=== PATIENT | male | born 1945 | race Caucasian/White ===

== ENCOUNTER 2020-01-27 21:59 | Inpatient (IN) | payer MEDICAID, SELFPAY ==
[2020-01-27 22:01] VITALS: BP 169/91; PULSE 96; RESP 16; TEMP 36.5; O2SAT 98; BMI 20.7
--- NOTE | 2020-01-27 22:01 | ECG_ITS ---
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 Measurements Intervals [place] Rate: 100 P: 53 UT: 181 QRS: 4 QRSD: 83 T: 30 QT: 350 QTc: 453 Interpretive Statements SINUS TACHYCARDIA ABNORMAL RHYTHM ECG No previous ECG available for comparison Electronically Signed On 01-28-2020 16:20:23 CDT by Gurdeep Flores M.D. [id number]
--- NOTE | 2020-01-27 22:01 | XR_ITS ---
WS: [id number] Portable AP upright chest, 01/27/2020 Clinical Data: weakness Comparison: None. Findings: No masses or effusions are seen. There is a 1 cm nodule in the midportion of the right lyndsay g overlying the posterior aspect of the right sixth rib. The heart is normal. The pulmonary vasculari ty is not increased. No pneumonia or pneumothorax is seen. The aortic arch and descending aorta are t ortuous. There is a hiatal hernia behind the heart. XR/XR chest 1V portable [id number] Impression: 1. 1 cm nodule in right upper lobe, recommend PA and lateral chest and possible CT scan of the chest. 2. Atherosclerosis.
--- NOTE | 2020-01-27 22:04 | ED_ITS ---
HPI - Weakness General: Chief complaint: General Medical Stated complaint: WELL BEING CHECK Time Seen by Provider: 01/27/20 21:59 Source: patient and EMS Mode of arrival: EMS Limitations: no limitations History of Present Illness: HPI Narrative: 74-year-old male who is here with EMS after having a well check call him by police. Patient was found in a house that was falling down and had no running water and police states they are going to condemned and likely tear the house down tomorrow. Patient has a history of cerebral palsy and history is limited from him due to his CP. He has been living by himself he states he is not able to ambulate very well. Patient appears very disheveled. He denies any pain anywhere or fever. Associated symptoms: Denies chest pain, chills, dysuria, easy bruising, fever(s), nausea or vomiting Review of Systems Const: Denies: fever(s), chills, body aches or change in appetite Eyes: Denies: blurry vision or eye discomfort ENMT: Denies: throat pain or dental pain Card: Denies: chest pain Resp: Denies: dyspnea GI: Denies: abdominal pain, nausea, vomiting or diarrhea : Denies: dysuria Musc: Denies: neck pain or back pain Skin/Breast: Denies: rash Neuro: Reports: weakness in extremities Psych: Denies: depression Clovis/Lymph: Denies: easy bruising All/Imm: Denies: urticaria Physical Exam Const: COMMON NORMALS: patient oriented x3 EXAM LIMITATIONS: physical limitations GENERAL APPEARANCE: disheveled and frail appearing HENMT: COMMON NORMALS: normocephalic and atraumatic HEAD & SCALP: normocephalic and atraumatic Eye: COMMON NORMALS: Equal, round and reactive pupils present and EOMs intact bilaterally PUPIL: Yes Equal, round and reactive pupils present Neck/C-Spine: COMMON NORMALS: full ROM and supple Chest: COMMONS NORMALS: normal inspection of the chest and normal palpation of entire chest wall Resp: COMMON NORMALS: normal respiratory effort, No retractions, No use of accessory muscles and clear to auscultation bilaterally AUSCULTATION: clear to auscultation bilaterally Cardio: COMMON NORMALS: regular rate, regular rhythm and No murmurs present (Cardio) RATE: regular rate RHYTHM: regular rhythm GI: COMMON NORMALS: Normal to inspection, nondistended, normoactive bowel sounds present, Soft to palpation, non-tender and no masses PALPATION: Yes Soft to palpation Extremity: COMMON NORMALS: normal to inspection and full ROM Neuro: COMMON NORMALS: patient oriented x3, moves all extremities and no focal motor deficits Psych: COMMON NORMALS: mental status grossly normal, Normal thought process present and cooperative THOUGHT PROCESS: Normal thought process present Skin: COMMON NORMALS: no rashes or lesions noted and no wounds GENERAL SKIN EXAM: no rashes or lesions noted Course Vital Signs: Vital signs: Vital Signs Temperature 97.7 F 01/27/20 22:01 Pulse Rate 121 H 01/28/20 00:10 Respiratory Rate 17 01/28/20 00:10 Blood Pressure 159/80 01/28/20 00:10 Pulse Oximetry 98 01/28/20 00:10 MDM - Weakness MDM Narrative: Medical decision making narrative: Piotr presents here with generalized weakness. Patient was found in the home that was not livable he has CP and is unable to care for himself. I have had Dr. Miller's come to see the patient and will admit for generalized weakness and his anemia. Lab Data: Labs: Lab Results 01/27/20 01/27/20 Range/Units 23:10 23:10 WBC 8.1 (4.0-10.0) 10^3/ uL RBC 4.05 L (4.1-5.3) 10^6/u L Hgb 8.5 L (11.7-16.6) g/dL Hct 30.6 L (42.0-52.0) % MCV 75.6 L (80-94) fL MCH 21.0 L (28.0-34.0) pg MCHC 27.8 L (30.0-36.0) g/dL RDW 19.6 H (12.1-15.1) % Plt Count 308 (130-400) 10^3/c mm MPV 9.4 (7.4-10.4) fL Neut % (Auto) 80.7 % Lymph % (Auto) 10.5 % Dixon % (Auto) 5.8 % Eos % (Auto) 2.0 % Baso % (Auto) 0.6 % Neut # (Auto) 6.53 (1.8-7.7) 10^3/u L Lymph # (Auto) 0.9 (0.8-4.8) 10^3/u L Dixon # (Auto) 0.5 (0.2-0.9) 10^3/u L Eos # (Auto) 0.2 (0.0-0.8) 10^3/u L Baso # (Auto) 0.1 (0.0-0.1) 10^3/u L Nucleated RBC % (a uto) 0 % Nucleated RBCs # 0.0 /100WBC Sodium 139 (136-145) mmol/L Potassium 4.0 (3.5-5.1) mmol/L Chloride 106 (98-107) mmol/L Carbon Dioxide 23 (22-29) mmol/L Anion Gap 14.0 (5-19) BUN 14 (8-23) mg/dL Creatinine 0.8 (0.7-1.2) mg/dL GFR Calculation Not Reportable Glucose 100 (65-115) mg/dL Calculated Osmolal ity 284 L (285-295) mOsm/k g Calcium 9.0 (8.5-10.5) mg/dL Magnesium 1.8 (1.7-2.3) mg/dL Total Bilirubin 0.5 (0.15-1.2) mg/dL AST 18 (0-40) U/L ALT 9 (0-41) U/L Alkaline Phosphata se 87 (40-130) IU/L Total Protein 7.6 (6.6-8.7) g/dL Albumin 3.7 (3.5-5.2) g/dL Globulin 3.9 (1.3-4.6) g/dL Imaging Data^: CXR: Attestation: I personally reviewed and interpreted this imaging study as follows: My impression: no acute abnormality EKG Data^: EKG 1: Attestation: I personally reviewed and interpreted this EKG as follows: EKG interpretation date: 01/27/20 EKG interpretation time: 23:01 Interpretation: nsr hr [address] or t wave abnormalities qrs 82 qtc 396 Discharge Plan Discharge Patient Disposition: Admitted As Inpatient Clinical Impression: Generalized weakness, Anemia Condition: Stable Coding Level of Care Code ED Ship Rigger Apprentice for Chg Fwd Exam Comprehensive
--- NOTE | 2020-01-27 23:16 | PC.NURSE ---
REPORT GIVEN TO MIKAYLA POTTER ASSUMED CARE.
[2020-01-27 23:28] LABS: Basophils # 0.1 10^3/uL (0.0-0.1); Basophils % 0.6 %; Eosinophils # 0.2 10^3/uL (0.0-0.8); Hematocrit 30.6 % (42.0-52.0); Hemoglobin 8.5 g/dL (11.7-16.6); Lymphocytes # 0.9 10^3/uL (0.8-4.8); Lymphocytes % 10.5 %; Mean Corpuscular HGB Conc 27.8 g/dL (30.0-36.0); Mean Corpuscular Volume 75.6 fL (80-94); Mean Platelet Volume 9.4 fL (7.4-10.4); Monocytes # 0.5 10^3/uL (0.2-0.9); Monocytes % 5.8 %; Neutrophils # 6.53 10^3/uL (1.8-7.7); Neutrophils % 80.7 %; Nucleated Red Blood Cells % 0 %; Platelet Count 308 10^3/cmm (130-400); Red Blood Count 4.05 10^6/uL (4.1-5.3); Red Cell Distribution Width 19.6 % (12.1-15.1); White Blood Count 8.1 10^3/uL (4.0-10.0)
[2020-01-27 23:37] VITALS: BP 156/89; PULSE 99; RESP 16; O2SAT 100
[2020-01-27] MEDS: sodium chloride 0.9% 1,000 ML 999 ML IV (23:49)
[2020-01-27] MEDS: lidocaine 2% viscous 15 ML, aluminum-mag hydrox-simethicon 30 ML, sucralfate oral liq 1 GM PO (23:49)
[2020-01-28] VITALS (20 sets, daily range): BP systolic 122–161; BP diastolic 75–92; PULSE 67–121; RESP 14–30; TEMP 36.6–37.2; O2SAT 92–98
[2020-01-28 00:07] LABS: Alanine Aminotransferase 9 U/L (0-41); Albumin Level 3.7 g/dL (3.5-5.2); Alkaline Phosphatase 87 IU/L (40-130); Aspartate Amino Transferase 18 U/L (0-40); Blood Urea Nitrogen 14 mg/dL (8-23); Carbon Dioxide 23 mmol/L (22-29); Chloride 106 mmol/L (98-107); Globulin 3.9 g/dL (1.3-4.6); Glucose 100 mg/dL (65-115); Magnesium 1.8 mg/dL (1.7-2.3); Osmolality Calculated 284 mOsm/kg (285-295); Sodium 139 mmol/L (136-145); Total Bilirubin 0.5 mg/dL (0.15-1.2); Total Protein 7.6 g/dL (6.6-8.7)
--- NOTE | 2020-01-28 00:28 | CTR_ITS ---
PROCEDURE INFORMATION: Exam: CT Head Without Contrast Exam date and time: 01/28/2020 12:53 AM Age: 74 years old Clinical indication: Condition or disease; Other: Cerebral palsy; Altered mental status/memory loss; Confusion or disorientation TECHNIQUE: Imaging protocol: Computed tomography of the head without contrast. Radiation optimization: All CT scans at this facility use at least one of these dose optimization techniques: automated exposure control; mA and/or kV adjustment per patient size (includes targeted exams where dose is matched to clinical indication); or iterative reconstruction. ADDITIONAL STUDY INFORMATION: Total DLP (mGy-cm): 830.91 COMPARISON: No relevant prior studies available. FINDINGS: Examination is limited by artifacts from patient motion. 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 There is large low-density structure in posterior aspect of posterior cranial fossa with mass effect upon cerebellum, likely arachnoid cyst. There are moderate intracranial arterial calcifications demonstrated.. There is moderate cerebral cortical atrophy. Ventricles do not appear significantly dilated. No definite depressed calvarial fracture is demonstrated. Visualized paranasal sinuses and mastoid air cells demonstrate no significant opacification. CT/CT head wo con* [id number] IMPRESSION: No definite acute intracranial process is demonstrated when allowing for artifacts from patient motion. 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 There is large low-density structure in posterior aspect of posterior cranial fossa with mass effect upon cerebellum, likely arachnoid cyst. No prior studies are available for comparison. Radiation Dose CTDIVOL = (mGy): DLP = 830.91 (mGy-cm)
--- NOTE | 2020-01-28 00:43 | P.HP_ITS ---
Providers/Chief Complaint Chief Complaint: WELL BEING CHECK History of Present Illness Piotr Michelle is a 74 year old male who presents to the emergency department via EMS. Patient himself reports he feels fine, but history is significantly limited secondary to CP, likely underlying memory difficulties, and speech impediment. All of the questions I asked him he seems to work and that he is fine . From my understanding police were called to the resident for wellness check. Residence has been condemned. Patient appeared very weak, disheveled and unable to take care of himself. I spoke with his power of business attorney, Tia Robles who reports she is kept up with him by phone for several years but has not physically been able to see him. She reports she has been more and more concerned with his ability to manage affairs. Since March 2019 he has not been paying his bills regularly and frequently gets utilities shut off. She has involved department of Senior services and they are planning to potentially have him transition to assisted living. She reports that he seems to be having significant memory problems currently. She believes he has had more difficulty walking where he was able to ambulate some with a cane. She reports he can no longer drive and this stopped around March 2019. She believes he has been having diarrhea for the last several months, and has complained he does not feel well to her. Review of Systems General: Reports: 10 or more systems reviewed and unremarkable except in HPI and below Const: Denies: fever(s) Eyes: Denies: change in vision ENMT: Denies: throat pain Card: Denies: chest pain Resp: Denies: dyspnea GI: Reports: diarrhea : Denies: flank pain Musc: Denies: neck pain Skin/Breast: Denies: rash Neuro: Denies: headache(s) Psych: Denies: anxiety Endo: Denies: polyuria Clovis/Lymph: Denies: easy bruising All/Imm: Denies: urticaria Medications/Allergies Allergies Allergy/AdvReac Type Severity Reaction Status Date / Time No Known Allergies Allergy Verified 01/27/20 22:07 PFSH Acute PFSH: Medical History (Updated 01/28/20 @ 00:53 by Jerad Hammer MD) Cerebral palsy Social History (Updated 01/28/20 @ 00:48 by Jerad Hammer MD) Smoking and tobacco status: former smoker Alcohol intake: never Supplemental PFSH Information: Power of business attorney does not believe he has had any surgeries Family history unknown other than mother of cerebral hemorrhage Vitals/I&O/Wt Last Vital Signs Temp 97.7 F 01/27/20 22:01 Pulse 121 H 01/28/20 00:10 Resp 17 01/28/20 00:10 BP 159/80 01/28/20 00:10 Pulse Ox 98 01/28/20 00:10 Weight last 48 hrs Weight 63.503 kg Physical Exam Narrative: EXAM NARRATIVE: General exam demonstrates a disheveled white male, with speech impediment. Neurologic: Partial left facial paralysis, left upper extremity and left lower extremity weakness, atrophy and contractures are noted consistent with his history of cerebral palsy Skin no rash HEENT: Pupils equally round. Oropharynx clear. Neck is supple no lymphadenopathy, thyromegaly Cardiovascular regular in rhythm without murmur, no S3 or S4 Lungs clear no wheezing or crackles Abdomen is soft, positive bowel sounds. No obvious organomegaly deferred Extremities no cyanosis clubbing or edema. See notations above and her neurologic exam. Cap refill brisk. Data : 01/27/20 23:10 01/27/20 23:10 Other data: Awaiting urinalysis. Note that his MCV is 76 LFTs normal Chest x-ray by my read demonstrates likely COPD. Nodule is present right lung field A&P Assessment and plan (1) Generalized weakness: I am not for sure if this is just deconditioning superimposed on his deficits and left hemiparesis from cerebral palsy. PT and OT consultations Status: Acute (2) Anemia: Microcytic. With history of diarrhea will check stool Hemoccult Initiate Protonix Check iron, TIBC, B12, folate Slightly tachycardic in the emergency department. Plan on repeating his hem oglobin in 4 hours to ensure he does not have worsening anemia or possible GI bleeding Status: Acute (3) Memory change: Power of business attorney believes this occurred around March Check CT noncontrast, B12, TSH Could have underlying dementia Status: Acute (4) Diarrhea: Reported by power of business attorney but as yet not confirmed. Patient denies but history seems unreliable. Monitor for diarrhea. If seen consider stool culture, C. difficile toxin. Status: Acute Additional A&P Information Cerebral palsy Poor living conditions. Will involve discharge planning Full code SCDs for DVT prophylaxis secondary to anemia Attestations Medical Necessity Statement*: Will need greater than 2 midnight stay for evaluation of anemia, generalized weakness, memory change, possible confusion Time Spent in Patient Care: Greater than 35 minutes Coding Level of Care Code Acute Director Data Management for Chg Fwd Diagnoses Generalized weakness R53.1 Anemia D64.9 Memory change R41.3 Diarrhea R19.7
--- NOTE | 2020-01-28 01:32 | PC.NURSE ---
Pt was worried about large amount of davis in wallet- called security and Lane has it locked in safe. Will relay to floor RN.
[2020-01-28 01:35] LABS: Add Urine Microscopic? NO
--- NOTE | 2020-01-28 01:36 | PC.NURSE ---
Pt eating sandwich, pudding, and drinking diet coke.
[2020-01-28 01:56] LABS: Bilirubin Urine Neg (NEGATIVE); Blood Urine Neg (Negative); Glucose Urine UA Norm (Normal); Ketones Urine Negative (Negative); Leukocyte Esterase Urine Negative (Negative); Nitrate Urine Negative (Negative); Protein Urine Neg (Negative); Specific Gravity, Urine 1.015 (1.005-1.030); Urine Appearance Clear (CLEAR); Urine Color Yellow (Yellow); Urobilinogen Urine Norm (Negative); pH Urine 7 (5-7)
[2020-01-28] MEDS: sodium chloride 0.9% 1,000 ML 75 ML IV ×2 (02:52→17:28)
[2020-01-28 04:49] LABS: Ferritin 8 ng/mL (30-400); Iron 21 ug/dL (59-158); Percent Saturation 5.3 % (20-50); Thyroid Stimulating Hormone 3.59 uIU/mL (0.27-4.20); Total Iron Binding Capacity 391 mcg/dl; Unsaturated Iron Binding 370 ug/dL (112-347); Vitamin B12 283 pg/mL (232-1245)
[2020-01-28 04:59] LABS: Hemoglobin 7.9 g/dL (11.7-16.6)
[2020-01-28 05:34] LABS: Alanine Aminotransferase 9 U/L (0-41); Albumin Level 3.2 g/dL (3.5-5.2); Alkaline Phosphatase 79 IU/L (40-130); Anion Gap 12.9 (5-19); Aspartate Amino Transferase 18 U/L (0-40); Blood Urea Nitrogen 13 mg/dL (8-23); Calcium 8.4 mg/dL (8.5-10.5); Carbon Dioxide 22 mmol/L (22-29); Chloride 108 mmol/L (98-107); Globulin 3.4 g/dL (1.3-4.6); Glucose 120 mg/dL (65-115); Osmolality Calculated 285 mOsm/kg (285-295); Potassium 3.9 mmol/L (3.5-5.1); Sodium 139 mmol/L (136-145); Total Bilirubin 0.4 mg/dL (0.15-1.2); Total Protein 6.6 g/dL (6.6-8.7)
[2020-01-28 06:14] LABS: Folate Level > 20.0 ng/mL (4.5-32.2)
[2020-01-28] MEDS: pantoprazole DR 40 mg Tablet PO (09:18)
--- NOTE | 2020-01-28 09:18 | PM.PN ---
Subjective Subjective: Interval history: No acute event over overnight. Patient was laying comfortably in the bed. Upon further interview he denied any active complain. Vitals and labs have been reviewed. He is tolerating diet well and has not complained of any loss of appetite. Denies any nausea vomiting, shortness of breath chest pain. He has denied any ongoing diarrhea.He also denies any black stool or bright red blood per rectum at home.He has not passed any stool this morning. will go ahead and to digital rectal exam if the patient allow. Patient seems more to his baseline. We have involved social sciences research scientist and physical therapy as well as occupational therapy . According to physical therapy patient is at his baseline functionality. Medications: Reviewed: Yes Vitals/I&O/Wt Last Vital Signs Temp 98.0 F 01/28/20 08:00 Pulse 67 01/28/20 08:00 Resp 16 01/28/20 08:00 BP 135/75 01/28/20 08:00 Pulse Ox 97 01/28/20 08:00 01/27/20 01/28/20 01/28/20 22:59 06:59 14:59 Intake Total 1000 / 1000 Balance 1000 / 1000 Weight last 48 hrs Weight 56.387 kg Weight 63.503 kg Physical Exam Narrative: EXAM NARRATIVE: General exam: Disheveled white male, with speech difficulty. Neurologic: Partial left facial paralysis, left upper extremity and left lower extremity weakness, atrophy and contractures are noted consistent with his history of cerebral palsy Skin no rash HENMT: COMMON NORMALS: normocephalic, atraumatic, hearing grossly normal bilaterally, external ears normal, Normal external nose present, moist oral mucous membranes and oropharynx normal HEAD & SCALP: normocephalic and atraumatic NOSE: Normal external nose present EXTERNAL EAR: Yes external ears normal and Yes no periauricular adenopathy OTHER: Pupils equally round. Oropharynx clear. Neck is supple no lymphadenopathy, thyromegaly Chest: OTHER: Resp: COMMON NORMALS: normal respiratory effort, No use of accessory muscles and clear to auscultation bilaterally EFFORT & INSPECTION: Yes able to speak in complete sentences AUSCULTATION: clear to auscultation bilaterally Cardio: COMMON NORMALS: S1 normal heart sound present, S2 normal heart sound present, No gallops present (Cardio), No murmurs present (Cardio) and Peripheral pulses 2+ throughout HEART SOUNDS: S1 normal heart sound present and S2 normal heart sound present PERIPHERAL PULSES: Peripheral pulses 2+ throughout, radial pulses present and dorsalis pedis present GI: COMMON NORMALS: Normal to inspection, nondistended, normoactive bowel sounds present, Soft to palpation, non-tender, No hepatosplenomegaly present and no masses INSPECTION: Yes normal to inspection AUSCULTATION: Yes normoactive bowel sounds PALPATION: Yes Soft to palpation and Yes No hepatosplenomegaly present : OTHER: Deferred Extremity: COMMON NORMALS: no clubbing, cyanosis or edema and no pedal edema OTHER: Mentioned in neurological exam Data : 01/28/20 04:50 01/28/20 04:50 A&P Assessment and plan (1) Generalized weakness: Likely likely secondary to deconditioning. PT/OT is on board. Will wait for PT OT recommendations. Status: Acute (2) Anemia: Iron Deficiency Anemia:Based on low serum Ferritin,low serum Iron, high RDW, and low % saturation. Current plan is to start oral Iron. And Follow up with [facility]OBT. Status: Acute Qualifiers: Anemia type: iron deficiency Iron deficiency anemia type: unspecified iron deficiency Qualified Code(s): D50.9 - Iron deficiency anemia, unspecified (3) Memory change: According to patient's power of vocal music teacher memory changes has started around March 2019March. CT head without contrast has not shown any acute intracranial pathology. Serum B12 is borderline 283. Will order MMA. Serum folate is normal. Serum TSH is normal. Cannot rule out underlying dementia. Status: Acute (4) Pulmonary nodule, right: Patient has an incidental finding of right upper lobe pulmonary nodule which is about 1 cm in diameter. No previous chest x-ray to compare. Given his prior smoking history an outpatient pulmonary medicine follow up will be set. Radiology suggested to do x-ray chest PA lateral and possible low-dose CT chest for further evaluation. We will also inform the patient's POA regarding the incidental finding of of right lung nodule so that it can be followed up as an outpatient. Status: Acute Additional A&P Information Hypomagnesemia: Cerebral palsy Poor living conditions. Will involve discharge planning Full code SCDs for DVT prophylaxis secondary to anemia Attestations Medical Necessity Statement*: Patient is undergoing physical therapy evaluation as well as social sciences research scientist on board to assess the needs. Time Spent in Patient Care: Greater than 35 minutes Coding Level of Care Code Acute Application Architect Manager for Chg Fwd Exam Detailed Diagnoses Generalized weakness R53.1 Anemia D50.9 Anemia type: iron deficiency Iron deficiency anemia type: unspecified iron deficiency Memory change R41.3 Pulmonary nodule, right R91.1
--- NOTE | 2020-01-28 12:18 | PC.CHAP ---
Pastoral Care Encounter/Spiritual Assessment Type of Contact [x] Declined concrete carpenter visit [] Patient/Family/Request visit [] Outpatient visit [] Follow-up visit [] Physician referral [] Code/Alert [] Routine visit [] Staff referral [] Actively dying [] Patient sleeping [] Family support [] [] Out of room [] Palliative care [] [] Receiving care in room [] Pre-surgical visit [] Trauma [] Long length of stay [] ICU visit [] Other: Relational/Emotional Strength [] Patient feels connected with others/family/visitors/staff [] Distress [] Loneliness/isolation [] Abandonment Spirituality of Patient [] Person of Adrienne [] Attends Restoration of their Adrienne [] Believes in Prayer [] Reads Bible or Hindu materials [] There are Spiritual issues to be addressed Break Out Man Interventions [] Prayer [] Active listening [] Non-anxious presence [] Spiritual/emotional support [] Crisis/trauma care [] Spiritual counseling [] Bereavement support [] Provided bereavement packet [] Provided Bible/devotional materials [] Provided toy/stuffed animal, coloring book to patient or family member [] Provided Communion [] Anointing/Gilbert [] Salvation [] Completed spiritual assessment [] Other: Impact on Illness or Injury [] Angry [] Fearful [] Anxious [] Often cries [] Exhaustion [] Unable to work [] Unable to attend hoahaoism [] Unable to walk/stand [] Unable to read [] Unable to drive [] Unable to eat/drink [] Unable to sleep [] Unable to be with family [] Patient intubated [] Other: Summary Declined concrete carpenter visit Time spent with patient 5 mins
[2020-01-29] VITALS: BP 148/70; PULSE 75; RESP 20; TEMP 36.5; O2SAT 92
[2020-01-29 04:00] VITALS: BP 157/87; PULSE 80; RESP 16; TEMP 36.6; O2SAT 98
[2020-01-29 05:26] LABS: Basophils % 0.4 %; Eosinophils # 0.3 10^3/uL (0.0-0.8); Hematocrit 31.1 % (42.0-52.0); Hemoglobin 8.3 g/dL (11.7-16.6); Lymphocytes # 1.5 10^3/uL (0.8-4.8); Lymphocytes % 15.6 %; Mean Corpuscular HGB Conc 26.7 g/dL (30.0-36.0); Mean Corpuscular Hemoglobin 20.9 pg (28.0-34.0); Mean Corpuscular Volume 78.1 fL (80-94); Mean Platelet Volume 9.1 fL (7.4-10.4); Monocytes # 0.7 10^3/uL (0.2-0.9); Neutrophils # 6.86 10^3/uL (1.8-7.7); Neutrophils % 73.6 %; Nucleated Red Blood Cells % 0 %; Platelet Count 300 10^3/cmm (130-400); Red Blood Count 3.98 10^6/uL (4.1-5.3); Red Cell Distribution Width 19.6 % (12.1-15.1); White Blood Count 9.3 10^3/uL (4.0-10.0)
[2020-01-29 05:36] LABS: Alanine Aminotransferase 9 U/L (0-41); Albumin Level 3.5 g/dL (3.5-5.2); Alkaline Phosphatase 84 IU/L (40-130); Anion Gap 13.9 (5-19); Aspartate Amino Transferase 17 U/L (0-40); Blood Urea Nitrogen 21 mg/dL (8-23); Calcium 8.5 mg/dL (8.5-10.5); Carbon Dioxide 20 mmol/L (22-29); Chloride 107 mmol/L (98-107); Globulin 3.7 g/dL (1.3-4.6); Glucose 100 mg/dL (65-115); Magnesium 1.9 mg/dL (1.7-2.3); Osmolality Calculated 281 mOsm/kg (285-295); Phosphorus 2.5 mg/dL (2.5-4.5); Potassium 3.9 mmol/L (3.5-5.1); Sodium 137 mmol/L (136-145); Total Bilirubin 0.3 mg/dL (0.15-1.2); Total Protein 7.2 g/dL (6.6-8.7)
[2020-01-29 07:44] VITALS: BP 130/78; PULSE 80; RESP 18; TEMP 36.3; O2SAT 92
--- NOTE | 2020-01-29 08:36 | P.PN_ITS ---
Subjective Subjective: Interval history: No acute events overnight. Patient is tolerating diet well. H&H has remained stable. Denies any nausea vomiting, shortness of breath chest pain. He has denied any ongoing diarrhea.He also denies any black stool or bright red blood per rectum at home.He has not passed any stool this morning.Vitals have been reviewed.Labs have been reviewed. Medications: Reviewed: Yes Vitals/I&O/Wt Last Vital Signs Temp 97.4 F L 01/29/20 07:44 Pulse 80 01/29/20 07:44 Resp 18 01/29/20 07:44 BP 130/78 01/29/20 07:44 Pulse Ox 92 01/29/20 07:44 01/28/20 01/29/20 01/29/20 22:59 06:59 14:59 Intake Total 1320 / 1800 Output Total 100 / 300 250 / 550 Balance 1220 / 1500 -250 / 1250 Weight last 48 hrs Weight 56.387 kg Weight 63.503 kg Physical Exam HENMT: COMMON NORMALS: normocephalic, atraumatic, hearing grossly normal bilaterally and external ears normal HEAD & SCALP: normocephalic and atraumatic EXTERNAL EAR: Yes external ears normal Eye: COMMON NORMALS: no scleral icterus GENERAL EYE: appearance normal, both eyes and all related structures Chest: CHEST: Yes Symmetrical chest wall rise Resp: COMMON NORMALS: normal respiratory effort, No retractions, No use of accessory muscles and clear to auscultation bilaterally EFFORT & INSPECTION: Yes symmetric chest movement AUSCULTATION: clear to auscultation bilaterally Cardio: COMMON NORMALS: regular rate, regular rhythm, S1 normal heart sound present, S2 normal heart sound present, No gallops present (Cardio), No murmurs present (Cardio), No rub (Cardio) and Peripheral pulses 2+ throughout RATE: regular rate RHYTHM: regular rhythm HEART SOUNDS: S1 normal heart sound p resent and S2 normal heart sound present PERIPHERAL PULSES: Peripheral pulses 2+ throughout GI: COMMON NORMALS: Normal to inspection, nondistended, normoactive bowel sounds present, Soft to palpation, non-tender, No hepatosplenomegaly present and no masses AUSCULTATION: Yes normoactive bowel sounds PALPATION: Yes Soft to palpation and Yes No hepatosplenomegaly present RECTAL EXAM: Yes deferred Extremity: COMMON NORMALS: no clubbing, cyanosis or edema and no pedal edema Data : 01/29/20 04:55 01/29/20 04:55 A&P Assessment and plan (1) Generalized weakness: Likely likely secondary to deconditioning. PT/OT is on board. Will continue with PT/OT. Status: Acute (2) Memory change: According to patient's power of human resources office manager memory changes has started around March 2019March. CT head without contrast has not shown any acute intracranial pathology. Serum B12 is borderline 283. Will order MMA. Serum folate is normal. Serum TSH is christopher Status: Acute (3) Diarrhea: Status: Acute (4) Anemia: Iron Deficiency Anemia:Based on low serum Ferritin,low serum Iron, high RDW, and low % saturation. Current plan is to start oral Iron. And Follow up with [facility]. Status: Acute Qualifiers: Anemia type: iron deficiency Iron deficiency anemia type: unspecified iron deficiency Qualified Code(s): D50.9 - Iron deficiency anemia, unspecified (5) Pulmonary nodule, right: Patient has an incidental finding of right upper lobe pulmonary nodule which is about 1 cm in diameter. No previous chest x-ray to compare. Given his prior smoking history an outpatient pulmonary medicine follow up will be set. Radiology suggested to do x-ray chest PA lateral and possible low-dose CT chest for further evaluation. We will also inform the patient's POA regarding the incidental finding of of right lung nodule so that it can be followed up as an outpatient. Status: Acute Additional A&P Information Cerebral palsy Poor living conditions. Will involve discharge planning Full code SCDs for DVT prophylaxis secondary to anemia Attestations Medical Necessity Statement*: Patient need Continued physical therapy as well he is awaiting placement.COVID Testing is also pending. Coding Level of Care Code Acute Cotton Wringer for Chg Fwd Exam Detailed Diagnoses Generalized weakness R53.1 Memory change R41.3 Diarrhea R19.7 Anemia D50.9 Anemia type: iron deficiency Iron deficiency anemia type: unspecified iron deficiency Pulmonary nodule, right R91.1
[2020-01-29] MEDS: pantoprazole DR 40 mg Tablet PO (09:04)
[2020-01-29] MEDS: multivitamin therapeutic Tablet 1 TAB PO (09:04)
[2020-01-29 11:56] VITALS: BP 139/67; PULSE 88; RESP 17; TEMP 36.7; O2SAT 90
--- NOTE | 2020-01-29 14:35 | PC.CHAP ---
Pastoral Care Encounter/Spiritual Assessment Type of Contact [] Declined percussion teacher visit [] Patient/Family/Request visit [] Outpatient visit [] Follow-up visit [] Physician referral [] Code/Alert [x] Routine visit [] Staff referral [] Actively dying [] Patient sleeping [] Family support [] [] Out of room [] Palliative care [] [] Receiving care in room [] Pre-surgical visit [] Trauma [] Long length of stay [] ICU visit [] Other: Relational/Emotional Strength [] Patient feels connected with others/family/visitors/staff [] Distress [] Loneliness/isolation [] Abandonment Spirituality of Patient [] Person of Adrienne [] Attends Denominational of their Adrienne [] Believes in Prayer [] Reads Bible or Hindu materials [x] There are Spiritual issues to be addressed Monogram Operator Interventions [] Prayer [x] Active listening [x] Non-anxious presence [x] Spiritual/emotional support [] Crisis/trauma care [] Spiritual counseling [] Bereavement support [] Provided bereavement packet [] Provided Bible/devotional materials [] Provided toy/stuffed animal, coloring book to patient or family member [] Provided Communion [] Anointing/[place] [] Salvation [x] Completed spiritual assessment [] Other: Impact on Illness or Injury [] Angry [] Fearful [] Anxious [] Often cries [] Exhaustion [] Unable to work [] Unable to attend baptist [] Unable to walk/stand [] Unable to read [] Unable to drive [] Unable to eat/drink [] Unable to sleep [x] Unable to be with family [] Patient intubated [] Other: Summary Patient seemed to have difficulty hearing and speaking clearly. He declined prayer and stated that he did not need anything from the chaplains. Monogram Operator told the patient that if he needed anything from the chaplains while he was in the hospital to just let his nursing staff know and they would contact us. Patient was visited by Monogram Operator Beny Nava. Time spent with patient 5 minutes
[2020-01-29 15:17] LABS: Quest SARS-CoV-2 RNA NOT DETECTED (NOT DETECTED)
[2020-01-29 16:00] VITALS: BP 143/75; PULSE 91; RESP 18; TEMP 36.7; O2SAT 99
--- NOTE | 2020-01-29 19:48 | PC.NURSE ---
At 1940, Security brought patient's wallet & davis in the amount of $1000 dollars and 88 cents to the patient. The davis was counted out in front of the patient, myself & security Lane. Patient then gave his wallet & all davis to his friend, Priti Weinberg. He says she is a long time friend & he trusts her to take his wallet & davis. Patient signed a sheet stating he gave his wallet and davis to Priti Weinberg. Signature page is in his chart.
[2020-01-29 20:00] VITALS: BP 138/67; PULSE 78; RESP 19; TEMP 36.9; O2SAT 97
[2020-01-30] VITALS: BP 117/69; PULSE 88; RESP 16; TEMP 36.8; O2SAT 97
[2020-01-30 04:00] VITALS: BP 127/80; PULSE 85; RESP 16; TEMP 36.6; O2SAT 96
--- NOTE | 2020-01-30 06:33 | PC.NURSE ---
SHIFT SUMMARY Patient sat in chair all night refusing to get into the bed. Patient was educated on the need for getting his feet up due to some swelling in his lower legs and needing to be weighed. Patient stated I would rather stay in my chair. I don't lay in a bed at home at all. Patient agreed to this nurse propping his feet up while laying in the chair. Patients friend picked up his davis that was locked up with security and bought Mr. Michelle some clothing, boots, and a cell phone. This nurse spent time with patient teaching him how to work his cell phone. Patient stated that he is nervous about going to a facility to live. He likes to be independent and free to care for himself. Patients vitals have been WNL with good output and intake.
[2020-01-30 08:00] VITALS: BP 132/70; PULSE 73; RESP 18; TEMP 36.5; O2SAT 100
[2020-01-30] MEDS: multivitamin therapeutic Tablet 1 TAB PO (09:15)
[2020-01-30] MEDS: pantoprazole DR 40 mg Tablet PO (09:15)
[2020-01-30 10:40] VITALS: BP 132/70; PULSE 73; RESP 18; TEMP 36.5; O2SAT 100
[2020-01-30 11:46] VITALS: BP 127/66; PULSE 72; RESP 18; TEMP 36.4; O2SAT 98
[2020-01-30 13:00] VITALS: BP 101/65; PULSE 94; RESP 16; TEMP 35.5; O2SAT 96
--- NOTE | 2020-01-30 15:02 | P.DS_ITS ---
Discharge Providers Date of Admission: 01/28/20 00:43 Date of Discharge: January 30, 2020 Attending Provider at Admission: Jerad Hammer MD Attending Provider at Discharge: Evelyn Jimenez MD Diagnoses at Discharge Discharge Diagnosis (1) Generalized weakness: Status: Acute (2) Memory change: Status: Acute (3) Diarrhea: Status: Acute (4) Anemia: Status: Acute Qualifiers: Anemia type: iron deficiency Iron deficiency anemia type: unspecified iron deficiency Qualified Code(s): D50.9 - Iron deficiency anemia, unspecified (5) Pulmonary nodule, right: Status: Acute Reason for Visit Reason for Visit: WELL BEING CHECK Hospital Course Discharge Summary: 74 year old male who presented to the emergency department via EMS. Patient himself reported he feels fine, but history was significantly limited secondary to CP, likely underlying memory difficulties, and speech impediment. Police were called to the residence for wellness check. Residence has been condemned. Patient appeared very weak, disheveled and unable to take care of himself. He was found to have microcytic anemia and started on iron an dmultivitamin supplementation. It was discussed with his power of trademark attorney S dionisio jim the latest updates. She had been working with the department of Senior services for a while to transition him to an assisted living facility. guest services director were consulted here and patient was transitioned to [facility]. He remains hemodynamically stable at the time of discharge. He was found to have an incidental pulmonary nodule on his chest x-ray for which he has been referred as an outpatient to pulmonology Physical Exam Narrative: EXAM NARRATIVE: GEN: Awake, alert CVS: S1S2 N RS: CTA B/L Abd: Soft, nt/nd , bs+ Discharge Data Data Completed and Pending: Completed Studies During Hospitalization Category Date Time Status CT head wo con* 7 0450 Urgent Cat Scan 01/28/20 00:28 Completed XR chest 1V amos ble [id number] Urgent Exams 01/27/20 22:01 Completed Pending at discharge Category Date Time Status MMA [Methylmaloni c Acid] Routine Lab 01/28/20 11:42 Received Labs from last 24 hours 01/28/20 15:30 SARS-CoV-2 RNA (RT -PCR) Not detected Vitals: Last Vital Signs Temp 97.6 F 01/30/20 11:46 Pulse 72 01/30/20 11:46 Resp 18 01/30/20 11:46 BP 127/66 01/30/20 11:46 Pulse Ox 98 01/30/20 11:46 Discharge Plan Discharge Patient Disposition: Xfer SNF Condition: Stable Prescriptions: New pantoprazole 40 mg Tablet,Delayed Release (Dr/Ec) 40 mg PO DAILY 30 Days Qty: 30 RF: 0 ferrous sulfate 300 mg (60 mg iron)/5 mL Liquid 300 mg PO BREAKFAST 30 Days Qty: 30 RF: 0 Thera 400 mcg Tablet 1 tab PO DAILY 30 Days Qty: 30 RF: 0 Discharge Orders: Discharge Order (Routine); Ordered 01/30/20 Ordered By: Evelyn Jimenez Other Ambulatory Orders: DME: Wheelchair (Order) Location: None Selected Ordered By: Everett Rubio Referrals: Datar,Arnaldo Clement MD [Physician] - 1 month (incidental pulmonary nodule. Please call patient at [facility] for hospital follow up in 1 month. Faxed information to clinic.) Discharge Diet: Usual diet Discharge Activity: Wheelchair as instructed Patient Instructions: Iron Supplements (By mouth), Pantoprazole (By mouth) Discharge Date/Time: 01/30/20 13:00 Discharge Attestations Time Spent in Discharge Care*: less than 30 min Quality Metrics Clinical Quality Measures During this hospital stay, did patient experience: None Coding Level of Care Code Acute Racecourse Barrier Attendant for Chg Fwd Diagnoses Generalized weakness R53.1 Memory change R41.3 Diarrhea R19.7 Anemia D50.9 Anemia type: iron deficiency Iron deficiency anemia type: unspecified iron deficiency Pulmonary nodule, right R91.1
[2020-02-02 15:53] LABS: Methylmalonic Acid 250 nmol/L (87-318)
== END 2020-01-30 13:00 | disposition skilled nursing facility (03) | DRG 812 ==
LOC: ER 01-28 00:25 → MEDSURG 01-28 00:50
PROVIDERS: Emergency Medicine; Internal Medicine; Admitting Provider Internal Medicine; Visit Provider Student in an Organized Health Care Education/Training Program
DX: D64.9 Anemia, unspecified (principal); R41.3 Other amnesia; R19.7 Diarrhea, unspecified; R91.1 Solitary pulmonary nodule; Z87.891 Personal history of nicotine dependence; G80.9 Cerebral palsy, unspecified
CPT/HCPCS: 12345; 36415; 70450; 71045; 80053; 81003; 82607; 82728; 82746; 83540; 83550; 83735; 83921; 84100; 84443; 85014; 85018; 85025; 87635; 93005; 97110; 97116; 97161; 97165; 97530; 97535; 99284; J7030

== ENCOUNTER 2020-10-07 06:04 | Emergency (ER) | payer MEDICAID, SELFPAY ==
[2020-10-07] VITALS (48 sets, daily range): BP systolic 65–112; BP diastolic 44–84; PULSE 87–130; RESP 17–30; TEMP 36.5; O2SAT 68–98; BMI 19.2
--- NOTE | 2020-10-07 06:15 | XRR_ITS ---
PROCEDURE INFORMATION: Exam: XR Chest Exam date and time: 10/07/2020 6:28 AM Age: 74 years old Clinical indication: Other: PT unable to give history; Additional info: Dyspnea/cough TECHNIQUE: Imaging protocol: XR of the chest. Views: 1 view. COMPARISON: DE XR chest 1V portable [id number] 01/27/2020 10:06 PM FINDINGS: Lungs: Minor areas of atelectasis or scarring in the lower lungs medially. There are a few vague suggestions of slight nodular configured opacity in the mid lungs which is newly developed or suggested in the left mid lung and accentuated on the right. Pleural spaces: Blunting of the right costophrenic angle. Bilateral apical pleural thickening. Heart/Mediastinum: Cardiomediastinal silhouette is similar. Hiatal hernia. Bones/joints: Osteopenia. Thinning or posttraumatic distortion of the right posterior 2nd rib. XR/XR chest 1V portable [id number] IMPRESSION: 1. Minor opacities of the lower lungs medially which could be on the basis of areas of atelectasis or scarring. 2. Vague suggestion of faint nodular densities bilateral mid lungs significance is uncertain. CT of the chest may be of benefit for complete exclusion of abnormal parenchymal nodules. 3. Bilateral apical pleural thickening.
--- NOTE | 2020-10-07 06:17 | ECG_ITS ---
[facility] Test Date: 2020-10-07 Pat Name: Piotr Michelle Department: Room: Gender: Male Research Statistician: : 1945 Requested By: Seven Lundberg Order Number: [id number] Melita MD: Gurdeep Flores M.D. Measurements Intervals [place] Rate: 111 P: 53 ME: 160 QRS: 2 QRSD: 74 T: 49 QT: 324 QTc: 440 Interpretive Statements SINUS TACHYCARDIA ST ELEVATION, PROBABLY EARLY REPOLARIZATION [ST ELEVATION WITH NORMALLY INFLECTED T WAVE] ABNORMAL RHYTHM ECG WARNING: DATA QUALITY MAY AFFECT INTERPRETATION INTERPRETATION BASED ON A DEFAULT AGE OF 40 YEARS Compared to ECG 01/28/2020 00:59:19 ST (T wave) deviation now present Early repolarization now present Electronically Signed On 10-07-2020 21:54:28 CDT by Gurdeep Flores M.D. [id number]
--- NOTE | 2020-10-07 06:18 | W.ED.NAVMDI ---
HPI - Nausea/Vomiting/Diarrhea General: Chief complaint: Nausea/Vomiting/Diarrhea Stated complaint: N/V, hypotension Time Seen by Provider: 10/07/20 06:05 History of Present Illness: HPI Narrative: 74-year-old male. Brought to the emergency room for hypotension and tachycardia. He is nonverbal. Is a history of cerebral palsy. Report via EMS as he has had nausea and vomiting for the last 3 days. There was no report of hematemesis or coffee-ground emesis. Patient has a history of COPD and anemia. Patient was hospitalized last fall for in January 2020 when he was found at home in a dilapidated house with later condemned [facility]. Patient has a power of contract attorney. According to his chart he was last documented to be a full code. MD elicited complaint: nausea and vomiting Onset (ago): day(s) (3) Associated symtoms: Reports altered mental status (present at baseline) Review of Systems General: Reports: ROS unobtainable due to mental status GI: Reports: vomiting (Per report from [facility]iary via EMS) PFSH ED PFSH: Medical History (Updated 10/08/20 @ 08:49 by Seven Neri DO) Cerebral palsy Lung nodule Family History Mother Cerebral hemorrhage Social History Smoking and tobacco status: former smoker Quit status (tobacco): has quit using tobacco Year quit tobacco: Unknown Alcohol intake: never Caregiver/support person: Yes Lives independently: No Household members: caregiver Housing: Detention Marital status: Single Current occupational status: disabled History of recent travel: No Current gender identity: Male Physical Exam Const: EXAM LIMITATIONS: altered mental status (present at baseline) HENMT: COMMON NORMALS: normocephalic and atraumatic HEAD & SCALP: normocephalic and atraumatic Eye: COMMON NORMALS: Equal, round and reactive pupils present, EOMs intact bilaterally, conjunctivae normal and no scleral icterus CONJUNCTIVA: Yes conjunctivae normal PUPIL: Yes Equal, round and reactive pupils present Neck/C-Spine: COMMON NORMALS: no JVD Resp: EFFORT & INSPECTION: Yes respiratory distress AUSCULTATION: wheezes Cardio: COMMON NORMALS: no JVD, regular rhythm and No murmurs present (Cardio) RATE: tachycardic RHYTHM: regular rhythm GI: COMMON NORMALS: No hepatosplenomegaly present AUSCULTATION: Yes Hypoactive bowel sounds present PALPATION: Yes Tenderness to palpation present (GI), No Guarding due to palpation present (GI) and Yes No hepatosplenomegaly present Extremity: NARRATIVE EXTREMITY EXAM: Cyanotic appearing left foot with what appears to be a shower of emboli to the toes. See arterial ultrasound below. After contacting [facility]iary found this has been present for several weeks. Skin: COMMON NORMALS: no rashes or lesions noted GENERAL SKIN EXAM: no rashes or lesions noted Course Vital Signs: Vital signs: Vital Signs Temperature 97.7 F 10/07/20 06:06 Pulse Rate 103 H 10/07/20 12:48 Respiratory Rate 18 10/07/20 12:48 Blood Pressure 95/61 10/07/20 12:48 Pulse Oximetry 93 10/07/20 12:48 MDM - Nausea/Vomiting/Diarrhea MDM Narrative: Medical decision making narrative: Has a bowel obstruction with an inguinal hernia. I cannot really palpate a hernia we can see it on CT. He also has acute kidney injury left ureterolithiasis with a UVJ obstructing stone at on the left.Additionally there is significant liver lesions suspicious for metastasis. His left foot is cyanotic however we found from the penitentiary is been that way for several weeks it is the appearance as if it is had a shower of emboli. General surgery is available to address his bowel issues however unfortunately urology is not on-call he was initially listed on the call schedule however when I contacted Dr. Schwartz it was a mistake he is not actually on-call today. Since we do not have urology coverage we will have to transfer him to a facility that does have urology coverage. Discussed with his power of contract attorney and given his overall frail health condition and multiple medical issues ongoing now they still want us to pursue all available treatment. We discussed he has a rather poor prognosis he still wishes to do everything. NG was placed. Started on antibiotics. Transported via ambulance. Discussed with receiving facility hospitalist. Patient was started on Levophed for pressure support after fluid bolus failed to raise his blood pressure. NG placed for decompression for his bowel obstruction. Lab Data: Labs: Lab Results 10/07/20 10/07/20 10/07/20 Range/Units 06:15 06:33 06:42 WBC (4.0-10.0) 10^3/ uL RBC (4.1-5.3) 10^6/u L Hgb (11.7-16.6) g/dL Hct (42.0-52.0) % MCV (80-94) fL MCH (28.0-34.0) pg MCHC (30.0-36.0) g/dL RDW (12.1-15.1) % Plt Count (130-400) 10^3/c mm MPV Lymph % (Auto) Cass % (Auto) Lymph # (Auto) Cass # (Auto) Total Counted (0-100) Atypical Lymphs % (0-5) % Absolute Neutrophi ls (1.4-6.5) 10^3/c mm Segmented Neutroph ils % Abs Segm Neuts (Ma n) (1.6-7.1) 10/cmm Band Neutrophils % Abs Band Neuts (Ma n) (0.0-1.2) 10^3/c mm Absolute Lymphocyt es (1.2-3.4) 10^3/c mm Lymphocytes (Manua l) % Monocytes (Manual) % Absolute Monocytes (0.1-0.6) 10^3/c mm Eosinophils (Manua l) % Absolute Eosinophi ls (0.0-0.7) 10^3/c mm Basophils (Manual) % Absolute Basophils (0.0-0.2) 10^3/c mm Metamyelocytes % Myelocytes % Nucleated RBCs (0-1) /100WBC Platelet Estimate (Normal) Anisocytosis Specimen Type Arterial Sample Site Brachial, right ABG pH 7.31 L (7.35-7.45) ABG pCO2 27.9 L (35-45) mmHg ABG pO2 64.2 L (80.0-100.0) mmH g ABG HCO3 13.9 L (22-26) mmol/L ABG O2 Saturation 88.7 ABG Base Excess -11.2 L (-2.0-2.0) mmol/ L Evan Test N/a A-a O2 Gradient 6.7 (5-10) mmHg Hematocrit 28.2 L (42-52) % Hgb O2 Saturation 86.6 L (95-100) % Carboxyhemoglobin 1.8 (0.4-20.1) %THgb Methemoglobin 0.6 (0.4-1.5) % Total Hemoglobin 9.2 L (14-18) g/dL Sodium 140.0 (131-143) mmol/L Potassium 5.3 H (3.5-5.0) mmol/L Glucose 95.0 (70-115) mg/dL Ionized Calcium 1.2 (1.1-1.4) mmol/L O2 Delivery Device Nc O2 Liters/Min 5.0 % FiO2 % Tow Car Driver ID Harkr Chloride (98-107) mmol/L Carbon Dioxide (22-29) mmol/L Anion Gap (5-19) BUN (8-23) mg/dL Creatinine (0.7-1.2) mg/dL GFR Calculation Calculated Osmolal ity (285-295) mOsm/k g Lactic Acid 10.0 H* (0.5-2.2) mmol/L Lactic Acid (Sepsi s) (0.5-2.2) mmol/L Calcium (8.5-10.5) mg/dL Magnesium (1.7-2.3) mg/dL Total Bilirubin (0.15-1.2) mg/dL AST (0-40) U/L ALT (0-41) U/L Alkaline Phosphata se (40-130) IU/L Creatine Kinase (39-308) U/L Troponin T Baselin e (0-15) ng/L Troponin T 120 Min [place] Troponin T Troponin T Hi Sens 6Hr (0-15) ng/L Troponin T Hi Sens 6Hr Delta (0-12) ng/L Total Protein (6.6-8.7) g/dL Albumin (3.5-5.2) g/dL Globulin (1.3-4.6) g/dL Lipase (13-60) U/L Urine Color Yellow (Yellow) Urine Appearance Sl hazy (CLEAR) Urine pH 5 (5-7) Ur Specific Gravit y 1.010 (1.005-1.030) Urine Protein Neg (Negative) Urine Glucose (UA) Trace H (Normal) Urine Ketones Negative (Negative) Urine Blood 2+ H (Negative) Urine Nitrate Negative (Negative) Urine Bilirubin 1+ H (Negative) Urine Urobilinogen Norm (Negative) mg/dL Ur Leukocyte Lisa ase Negative (Negative) Urine RBC 0-4 H (0-2) /hpf Urine WBC 0-4 H (0-5) /hpf Ur Squamous Epith Cells 0-4 H (0-5) /hpf Ur Transition Epit h Cell 0-4 /hpf Amorphous Sediment 1+ /hpf Urine Bacteria Trace (NONE) /hpf Other Casts Epithelial /lpf Urine Mucus 1+ /hpf 10/07/20 10/07/20 10/07/20 Range/Units 06:42 06:42 06:42 WBC 10.8 H (4.0-10.0) 10^3/ uL RBC 4.01 L (4.1-5.3) 10^6/u L Hgb 8.3 L (11.7-16.6) g/dL Hct 32.8 L (42.0-52.0) % MCV 81.8 (80-94) fL MCH 20.7 L (28.0-34.0) pg MCHC 25.3 L (30.0-36.0) g/dL RDW 27.1 H (12.1-15.1) % Plt Count 180 (130-400) 10^3/c mm MPV Not Reportable Lymph % (Auto) Not Reportable Cass % (Auto) Not Reportable Lymph # (Auto) Not Reportable Cass # (Auto) Not Reportable Total Counted 100 (0-100) Atypical Lymphs % 1.0 (0-5) % Absolute Neutrophi ls 9.0 H (1.4-6.5) 10^3/c mm Segmented Neutroph ils 46 % Abs Segm Neuts (Ma n) 5.0 (1.6-7.1) 10/cmm Band Neutrophils 37.0 % Abs Band Neuts (Ma n) 4.0 H (0.0-1.2) 10^3/c mm Absolute Lymphocyt es 1.2 (1.2-3.4) 10^3/c mm Lymphocytes (Manua l) 10 % Monocytes (Manual) 1.0 % Absolute Monocytes 0.1 (0.1-0.6) 10^3/c mm Eosinophils (Manua l) 0 % Absolute Eosinophi ls 0.0 (0.0-0.7) 10^3/c mm Basophils (Manual) 0.0 % Absolute Basophils 0.0 (0.0-0.2) 10^3/c mm Metamyelocytes 4.0 % Myelocytes 1.0 % Nucleated RBCs 3.0 H (0-1) /100WBC Platelet Estimate Normal (Normal) Anisocytosis 1+ H Specimen Type Sample Site ABG pH (7.35-7.45) ABG pCO2 (35-45) mmHg ABG pO2 (80.0-100.0) mmH g ABG HCO3 (22-26) mmol/L ABG O2 Saturation ABG Base Excess (-2.0-2.0) mmol/ L Evan Test A-a O2 Gradient (5-10) mmHg Hematocrit (42-52) % Hgb O2 Saturation (95-100) % Carboxyhemoglobin (0.4-20.1) %THgb Methemoglobin (0.4-1.5) % Total Hemoglobin (14-18) g/dL Sodium 138 (131-143) mmol/L Potassium 5.4 H (3.5-5.0) mmol/L Glucose 91 (70-115) mg/dL Ionized Calcium (1.1-1.4) mmol/L O2 Delivery Device O2 Liters/Min % FiO2 % Tow Car Driver ID Chloride 97 L (98-107) mmol/L Carbon Dioxide 14 L (22-29) mmol/L Anion Gap 32.4 H (5-19) BUN 97 H* D (8-23) mg/dL Creatinine 4.5 H (0.7-1.2) mg/dL GFR Calculation Not Reportable Calculated Osmolal ity 316 H (285-295) mOsm/k g Lactic Acid (0.5-2.2) mmol/L Lactic Acid (Sepsi s) (0.5-2.2) mmol/L Calcium 8.9 (8.5-10.5) mg/dL Magnesium 3.5 H (1.7-2.3) mg/dL Total Bilirubin 0.6 (0.15-1.2) mg/dL AST 160 H (0-40) U/L ALT 65 H (0-41) U/L Alkaline Phosphata se 435 H (40-130) IU/L Creatine Kinase 350 H* (39-308) U/L Troponin T Baselin e 47 H (0-15) ng/L Troponin T 120 Min [place] Troponin T Troponin T Hi Sens 6Hr (0-15) ng/L Troponin T Hi Sens 6Hr Delta (0-12) ng/L Total Protein 6.6 (6.6-8.7) g/dL Albumin 2.6 L (3.5-5.2) g/dL Globulin 4.0 (1.3-4.6) g/dL Lipase 72 H (13-60) U/L Urine Color (Yellow) Urine Appearance (CLEAR) Urine pH (5-7) Ur Specific Gravit y (1.005-1.030) Urine Protein (Negative) Urine Glucose (UA) (Normal) Urine Ketones (Negative) Urine Blood (Negative) Urine Nitrate (Negative) Urine Bilirubin (Negative) Urine Urobilinogen (Negative) mg/dL Ur Leukocyte Lisa ase (Negative) Urine RBC (0-2) /hpf Urine WBC (0-5) /hpf Ur Squamous Epith Cells (0-5) /hpf Ur Transition Epit h Cell /hpf Amorphous Sediment /hpf Urine Bacteria (NONE) /hpf Other Casts /lpf Urine Mucus /hpf 10/07/20 10/07/20 10/07/20 Range/Units 08:41 08:50 09:19 WBC (4.0-10.0) 10^3/ uL RBC (4.1-5.3) 10^6/u L Hgb (11.7-16.6) g/dL Hct (42.0-52.0) % MCV (80-94) fL MCH (28.0-34.0) pg MCHC (30.0-36.0) g/dL RDW (12.1-15.1) % Plt Count (130-400) 10^3/c mm MPV Lymph % (Auto) Cass % (Auto) Lymph # (Auto) Cass # (Auto) Total Counted (0-100) Atypical Lymphs % (0-5) % Absolute Neutrophi ls (1.4-6.5) 10^3/c mm Segmented Neutroph ils % Abs Segm Neuts (Ma n) (1.6-7.1) 10/cmm Band Neutrophils % Abs Band Neuts (Ma n) (0.0-1.2) 10^3/c mm Absolute Lymphocyt es (1.2-3.4) 10^3/c mm Lymphocytes (Manua l) % Monocytes (Manual) % Absolute Monocytes (0.1-0.6) 10^3/c mm Eosinophils (Manua l) % Absolute Eosinophi ls (0.0-0.7) 10^3/c mm Basophils (Manual) % Absolute Basophils (0.0-0.2) 10^3/c mm Metamyelocytes % Myelocytes % Nucleated RBCs (0-1) /100WBC Platelet Estimate (Normal) Anisocytosis Specimen Type Arterial Sample Site Brachial, right ABG pH 7.32 L (7.35-7.45) ABG pCO2 34.5 L (35-45) mmHg ABG pO2 78.3 L (80.0-100.0) mmH g ABG HCO3 17.9 L (22-26) mmol/L ABG O2 Saturation 94.4 ABG Base Excess -7.5 L (-2.0-2.0) mmol/ L Evan Test N/a A-a O2 Gradient 77.8 H (5-10) mmHg Hematocrit 21.7 L (42-52) % Hgb O2 Saturation 91.7 L (95-100) % Carboxyhemoglobin 1.7 (0.4-20.1) %THgb Methemoglobin 1.1 (0.4-1.5) % Total Hemoglobin 7.1 L (14-18) g/dL Sodium 141.0 (131-143) mmol/L Potassium 4.9 (3.5-5.0) mmol/L Glucose 99.0 (70-115) mg/dL Ionized Calcium 1.2 (1.1-1.4) mmol/L O2 Delivery Device Nrb O2 Liters/Min % FiO2 100.0 % Tow Car Driver ID Amh Chloride (98-107) mmol/L Carbon Dioxide (22-29) mmol/L Anion Gap (5-19) BUN (8-23) mg/dL Creatinine (0.7-1.2) mg/dL GFR Calculation Calculated Osmolal ity (285-295) mOsm/k g Lactic Acid (0.5-2.2) mmol/L Lactic Acid (Sepsi s) 6.4 H* (0.5-2.2) mmol/L Calcium (8.5-10.5) mg/dL Magnesium (1.7-2.3) mg/dL Total Bilirubin (0.15-1.2) mg/dL AST (0-40) U/L ALT (0-41) U/L Alkaline Phosphata se (40-130) IU/L Creatine Kinase (39-308) U/L Troponin T Baselin e (0-15) ng/L Troponin T 120 Min [place]anc[place] Delta Troponin T Cancelled Troponin T Hi Sens 6Hr (0-15) ng/L Troponin T Hi Sens 6Hr Delta (0-12) ng/L Total Protein (6.6-8.7) g/dL Albumin (3.5-5.2) g/dL Globulin (1.3-4.6) g/dL Lipase (13-60) U/L Urine Color (Yellow) Urine Appearance (CLEAR) Urine pH (5-7) Ur Specific Gravit y (1.005-1.030) Urine Protein (Negative) Urine Glucose (UA) (Normal) Urine Ketones (Negative) Urine Blood (Negative) Urine Nitrate (Negative) Urine Bilirubin (Negative) Urine Urobilinogen (Negative) mg/dL Ur Leukocyte Lisa ase (Negative) Urine RBC (0-2) /hpf Urine WBC (0-5) /hpf Ur Squamous Epith Cells (0-5) /hpf Ur Transition Epit h Cell /hpf Amorphous Sediment /hpf Urine Bacteria (NONE) /hpf Other Casts /lpf Urine Mucus /hpf 10/07/20 10/07/20 Range/Units 09:19 13:15 WBC (4.0-10.0) 10^3/ uL RBC (4.1-5.3) 10^6/u L Hgb (11.7-16.6) g/dL Hct (42.0-52.0) % MCV (80-94) fL MCH (28.0-34.0) pg MCHC (30.0-36.0) g/dL RDW (12.1-15.1) % Plt Count (130-400) 10^3/c mm MPV Lymph % (Auto) Cass % (Auto) Lymph # (Auto) Cass # (Auto) Total Counted (0-100) Atypical Lymphs % (0-5) % Absolute Neutrophi ls (1.4-6.5) 10^3/c mm Segmented Neutroph ils % Abs Segm Neuts (Ma n) (1.6-7.1) 10/cmm Band Neutrophils % Abs Band Neuts (Ma n) (0.0-1.2) 10^3/c mm Absolute Lymphocyt es (1.2-3.4) 10^3/c mm Lymphocytes (Manua l) % Monocytes (Manual) % Absolute Monocytes (0.1-0.6) 10^3/c mm Eosinophils (Manua l) % Absolute Eosinophi ls (0.0-0.7) 10^3/c mm Basophils (Manual) % Absolute Basophils (0.0-0.2) 10^3/c mm Metamyelocytes % Myelocytes % Nucleated RBCs (0-1) /100WBC Platelet Estimate (Normal) Anisocytosis Specimen Type Sample Site ABG pH (7.35-7.45) ABG pCO2 (35-45) mmHg ABG pO2 (80.0-100.0) mmH g ABG HCO3 (22-26) mmol/L ABG O2 Saturation ABG Base Excess (-2.0-2.0) mmol/ L Evan Test A-a O2 Gradient (5-10) mmHg Hematocrit (42-52) % Hgb O2 Saturation (95-100) % Carboxyhemoglobin (0.4-20.1) %THgb Methemoglobin (0.4-1.5) % Total Hemoglobin (14-18) g/dL Sodium (131-143) mmol/L Potassium (3.5-5.0) mmol/L Glucose (70-115) mg/dL Ionized Calcium (1.1-1.4) mmol/L O2 Delivery Device O2 Liters/Min % FiO2 % Tow Car Driver ID Chloride (98-107) mmol/L Carbon Dioxide (22-29) mmol/L Anion Gap (5-19) BUN (8-23) mg/dL Creatinine (0.7-1.2) mg/dL GFR Calculation Calculated Osmolal ity (285-295) mOsm/k g Lactic Acid (0.5-2.2) mmol/L Lactic Acid (Sepsi s) (0.5-2.2) mmol/L Calcium (8.5-10.5) mg/dL Magnesium (1.7-2.3) mg/dL Total Bilirubin (0.15-1.2) mg/dL AST (0-40) U/L ALT (0-41) U/L Alkaline Phosphata se (40-130) IU/L Creatine Kinase (39-308) U/L Troponin T Baselin e (0-15) ng/L Troponin T 120 Min [place] 40.51 H Delta Troponin T -6.49 L Troponin T Hi Sens 6Hr 41.41 H (0-15) ng/L Troponin T Hi Sens 6Hr Delta -5.59 L (0-12) ng/L Total Protein (6.6-8.7) g/dL Albumin (3.5-5.2) g/dL Globulin (1.3-4.6) g/dL Lipase (13-60) U/L Urine Color (Yellow) Urine Appearance (CLEAR) Urine pH (5-7) Ur Specific Gravit y (1.005-1.030) Urine Protein (Negative) Urine Glucose (UA) (Normal) Urine Ketones (Negative) Urine Blood (Negative) Urine Nitrate (Negative) Urine Bilirubin (Negative) Urine Urobilinogen (Negative) mg/dL Ur Leukocyte Lisa ase (Negative) Urine RBC (0-2) /hpf Urine WBC (0-5) /hpf Ur Squamous Epith Cells (0-5) /hpf Ur Transition Epit h Cell /hpf Amorphous Sediment /hpf Urine Bacteria (NONE) /hpf Other Casts /lpf Urine Mucus /hpf Discharge Plan Discharge Patient Disposition: Xfer Short-Term Hosp Clinical Impression: Small bowel obstruction, Generalized weakness, Anemia, Pulmonary nodule, right, Cerebral palsy, Inguinal hernia, right, Hepatic lesion, PAD (peripheral artery disease), Left nephrolithiasis, Acute kidney injury, Sepsis Referrals: Cy Gonzales MD [Primary Care Provider] - Coding Level of Care Code ED Textile Colorist Dyer for Chg Fwd Exam Problem Focused
[2020-10-07] MEDS: sodium chloride 0.9% 1,000 ML 999 ML IV (06:22)
[2020-10-07] MEDS: ondansetron 2 mg/ML SDV 2 mL 4 MG IVP (06:23)
[2020-10-07 06:26] LABS: ABG PCO2 27.9 mmHg (35-45); ABG PH Result 7.31 (7.35-7.45); Alveolar-Arterial Oxygen Gradi 6.7 mmHg (5-10); Arterial Blood Gas Hematocrit 28.2 % (42-52); Base Excess ABG -11.2 mmol/L (-2.0-2.0); Blood Gas Operator Identificat HARKR; Blood Gas Sample Site Brachial, right; Blood Gas Sample Type Arterial; Carboxyhemoglobin 1.8 %THgb (0.4-20.1); HCO3 ABG 13.9 mmol/L (22-26); HGB O2 Sat 86.6 % (95-100); Ionized Calcium Level - ABG 1.2 mmol/L (1.1-1.4); Methemoglobin 0.6 % (0.4-1.5); Oxygen Device NC; Oxygen Saturation ABG 88.7; PO2 ABG 64.2 mmHg (80.0-100.0); Potassium Level - ABG 5.3 mmol/L (3.5-5.0); Total Hemoglobin 9.2 g/dL (14-18)
[2020-10-07 06:53] LABS: Glucose Urine UA Trace (Normal); Protein Urine Neg (Negative); Urine Appearance SL Hazy (CLEAR); Urine Color Yellow (Yellow); pH Urine 5 (5-7)
[2020-10-07 06:54] LABS: Add Urine Microscopic? YES; Bilirubin Urine 1+ (Negative); Blood Urine 2+ (Negative); Ketones Urine Negative (Negative); Leukocyte Esterase Urine Negative (Negative); Nitrate Urine Negative (Negative); Urobilinogen Urine Norm (Negative)
[2020-10-07 06:58] LABS: Hematocrit 32.8 % (42.0-52.0); Hemoglobin 8.3 g/dL (11.7-16.6); Mean Corpuscular HGB Conc 25.3 g/dL (30.0-36.0); Mean Corpuscular Hemoglobin 20.7 pg (28.0-34.0); Mean Corpuscular Volume 81.8 fL (80-94); Platelet Count 180 10^3/cmm (130-400); Red Blood Count 4.01 10^6/uL (4.1-5.3); Red Cell Distribution Width 27.1 % (12.1-15.1); White Blood Count 10.8 10^3/uL (4.0-10.0)
[2020-10-07 07:13] LABS: Bacteria Urine TRACE /hpf; RBC Urine 0-4 /hpf (0-2); Squamous Epithelial Cell Urine 0-4 /hpf (0-5); Transitional Epi Cells Urine 0-4 /hpf; WBC Urine 0-4 /hpf (0-5)
[2020-10-07 07:14] LABS: Add Urine Culture? No; Amorphous Sediment Urine 1+ /hpf; Mucus Urine 1+ /hpf; Other Casts Urine EPITHELIAL /lpf
[2020-10-07 07:20] LABS: Alanine Aminotransferase 65 U/L (0-41); Albumin Level 2.6 g/dL (3.5-5.2); Alkaline Phosphatase 435 IU/L (40-130); Anion Gap 32.4 (5-19); Aspartate Amino Transferase 160 U/L (0-40); Calcium 8.9 mg/dL (8.5-10.5); Carbon Dioxide 14 mmol/L (22-29); Chloride 97 mmol/L (98-107); Glucose 91 mg/dL (65-115); Lipase 72 U/L (13-60); Magnesium 3.5 mg/dL (1.7-2.3); Osmolality Calculated 316 mOsm/kg (285-295); Potassium 5.4 mmol/L (3.5-5.1); Sodium 138 mmol/L (136-145); Total Bilirubin 0.6 mg/dL (0.15-1.2); Total Protein 6.6 g/dL (6.6-8.7)
[2020-10-07 07:21] LABS: Troponin(5th) Baseline 47 ng/L (0-15)
[2020-10-07 07:23] LABS: Blood Urea Nitrogen 97 mg/dL (8-23); Creatine Phosphokinase 350 U/L (39-308)
[2020-10-07 07:28] LABS: Slide Review Slide Review Perform
[2020-10-07 07:32] LABS: Anisocytosis 1+; Eosinophils 0 %; Lymphocytes 10 %; Lymphocytes Absolute 1.2 10^3/cmm (1.2-3.4); Monocytes Absolute 0.1 10^3/cmm (0.1-0.6); Platelet Estimate Normal (Normal); Segmented Neutrophils 46 %; Total Cells Counted 100 (0-100)
--- NOTE | 2020-10-07 07:35 | CT_ITS ---
WS: [id number] CT ABDOMEN AND PELVIS NONCONTRAST HISTORY: abd pain TECHNIQUE: Imaging performed through the abdomen and pelvis. Coronal and sagittal reformats are submi tted. All CT scans at [facility] use at least one of these dose optimization techniques: automated exposure control; mA and/or kV adjustment per patient size (includes targeted exams where d ose is matched to clinical indication); or iterative reconstruction. DLP: 1029.33 mGy.cm COMPARISON: ost Lower thorax: Prominent reticular nodular opacifications at the lung bases. There are multiple reticu lations and spiculated subcentimeter nodules bilaterally. Heart is top normal size. There is marked t hickening of the distal esophagus. Large hiatal hernia with thickening of the herniated portion of th e stomach. Liver: Normal size liver with numerous low-attenuation masses throughout the liver highly suspicious for metastatic disease. No bile duct dilatation. Gallbladder: Normally distended with cholelithiasis. Pancreas: Normal size and attenuation. Normal pancreatic duct. No pancreatitis or mass. Spleen: Normal. Adrenal glands: Nodularity and thickening of each adrenal gland. RIGHT adrenal mass not excluded loly uring 12 to 13 mm. Right kidney: Nonobstructing 5 mm calcification lower pole. Left kidney: Marked dilatation of the renal pelvis. Severe LEFT hydroureteronephrosis secondary to a 9 mm calcification in the distal ureter. Aorta: Mild atherosclerosis abdominal aorta with no aneurysm. Evaluation for lymph nodes is very limited with this amount of motion and no, oral or IV contrast. Th ere is mild mesenteric edema and thickening. GI tract: Fluid distended stomach. Mild dilated small bowel loops throughout. Small bowel loops measu re up to 2.6 cm within the pelvis. There is a RIGHT inguinal hernia containing loops of dilated small bowel which is probably causing moderate obstruction. The appendix is partially visualized and does appear normal. Abdominal wall: Negative. No hernia. Pelvis: Small amount of free fluid. Urinary bladder is minimally distended. Prostate gland is slightl y enlarged. Osseous structures: RIGHT curvature lumbar spine. Multiple osteoporotic compression fractures includi ng T11, L1, L3, L4 and L5. Severe hip joint arthritis on the LEFT with partial lateral subluxation of the hip. No metastatic bone lesions are identified. CT/CT abdomen pelvis wo con [id number] IMPRESSION: 1. Moderate small bowel obstruction secondary to a RIGHT inguinal hernia. 2. Study is significantly limited by motion artifact and lack of contrast. 3. Numerous lesions within the liver highly suspicious for metastatic disease. Hepatic abscesses may appear similar. 4. Cholelithiasis without biliary duct dilatation. 5. Bilateral reticular nodular changes at the lung bases. Differential include s bronchial infection and early metastatic lesions or septic emboli. 6. Diffuse distal esophageal wall thickening and hiatal hernia. 7. Moderate LEFT hydroureteronephrosis secondary to a 9 mm calcification in th e distal ureter. 8. Osteopenia with numerous compression fractures. 9. Mesenteric edema. Notified Seven Neri DO at 10/07/2020 8:20 AM.
[2020-10-07] MEDS: piperacillin-tazobactam 3.375 GM in sodium chloride 0.9% (plus) 50 ML IV (08:12)
[2020-10-07] MEDS: sodium chloride 0.9% 1,769.01 ML 1769 ML IV (08:14)
--- NOTE | 2020-10-07 08:17 | ECG_ITS ---
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 Measurements Intervals [place] Rate: P: [place]: QRS: 0 QRSD: T: 0 QT: QTc: Interpretive Statements Unable to interpret rhythm because of baseline artifact. Possible sinus tachycardia Compared to ECG 10/07/2020 06:15:30 Sinus tachycardia no longer present ST (T wave) deviation no longer present Early repolarization no longer present Electronically Signed On 10-07-2020 22:00:38 CDT by Gurdeep Flores M.D. [id number]
[2020-10-07 08:40] LABS: Reflex Lactate Order REFLEX LACTIC ORDERD
[2020-10-07 08:53] LABS: ABG PCO2 34.5 mmHg (35-45); ABG PH Result 7.32 (7.35-7.45); Alveolar-Arterial Oxygen Gradi 77.8 mmHg (5-10); Arterial Blood Gas Hematocrit 21.7 % (42-52); Base Excess ABG -7.5 mmol/L (-2.0-2.0); Blood Gas Operator Identificat AMH; Blood Gas Sample Site Brachial, right; Blood Gas Sample Type Arterial; Carboxyhemoglobin 1.7 %THgb (0.4-20.1); HCO3 ABG 17.9 mmol/L (22-26); HGB O2 Sat 91.7 % (95-100); Ionized Calcium Level - ABG 1.2 mmol/L (1.1-1.4); Methemoglobin 1.1 % (0.4-1.5); Oxygen Device NRB; Oxygen Saturation ABG 94.4; PO2 ABG 78.3 mmHg (80.0-100.0); Potassium Level - ABG 4.9 mmol/L (3.5-5.0); Total Hemoglobin 7.1 g/dL (14-18)
[2020-10-07] MEDS: sodium bicarbonate 8.4% 1 mEq/mL 50mL Syr 50 MEQ IVP (09:04)
--- NOTE | 2020-10-07 09:11 | USCV_ITS ---
Piotr Michelle Age: 74 Gender: M : 1945 Exam Date: 10/07/2020 09:28 Ordering Phys: Seven Neri DO Technologist: Thuy Wood [place] [facility] [place]: ISCHEMIC [place] Risk Factors: Previous Vascular Surgery: RIGHT LEFT BP: / BP: 112.0/ 58.00 0 Waveform Velocity (cm/s) Velocity (cm/s) Waveform Iliac Prox 128.6 Triphasic Iliac Mid 101.4 Triphasic Iliac Distal 80.9 Triphasic DIAMOND ASSORTER 123.1 Triphasic SFA Prox 86.9 Triphasic SFA Mid 160.6 Monophasic SFA Dist 75.7 Biphasic POP 90.4 Biphasic PAYROLL SUPERVISOR 36.2 Biphasic DPA 54.2 Biphasic RENEA 0.7 FINDINGS LT PAYROLL SUPERVISOR = 50 LT DPA = 70 Elevated Doppler velocity in the mid SFA, suggestive of greater than 50% gnosis Diminished resting RENEA of 0.7 Mild to moderate diffuse plaques in the iliac and femoral artery on the left side CONCLUSIONS Abnormal resting RENEA, suggesting moderate peripheral artery disease on the left side. Abnormal Doppler signals suggesting greater than 50% stenosis at the level of the mid superficial femoral artery No previous studies available for comparison Dr Sam Lin MD [facility] (Electronically Signed) Final Date: 08 Oct 2020 10:20 S
[2020-10-07 09:45] LABS: Troponin 5 2HR 40.51 ng/L (0-15)
[2020-10-07 09:47] LABS: Troponin 5 2HR Delta -6.49 ABS# (0-10)
[2020-10-07 09:54] LABS: Lactic Acid level (Lactate) 6.4 mmol/L (0.5-2.2)
--- NOTE | 2020-10-07 12:17 | ECG_ITS ---
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 Measurements Intervals [facility] Rate: 111 P: 58 MA: 157 QRS: 56 QRSD: 78 T: 75 QT: 320 QTc: 436 Interpretive Statements SINUS TACHYCARDIA Compared to ECG 10/07/2020 09:29:34 No significant changes Electronically Signed On 10-07-2020 21:59:53 CDT by Gurdeep Flores M.D. [id number]
[2020-10-07 13:43] LABS: Troponin 5 6HR 41.41 ng/L (0-15)
[2020-10-07 14:12] LABS: Troponin 5 6HR Delta -5.59 ng/L (0-12)
== END 2020-10-07 14:32 | disposition short-term general hospital (02) ==
PROVIDERS: Emergency Provider Family Medicine; PCP Internal Medicine
DX: K56.609 Unspecified intestinal obstruction, unspecified as to partial versus complete obstruction (principal); R53.1 Weakness; D64.9 Anemia, unspecified; G80.9 Cerebral palsy, unspecified; R91.1 Solitary pulmonary nodule; K40.90 Unilateral inguinal hernia, without obstruction or gangrene, not specified as recurrent; K76.9 Liver disease, unspecified; I73.9 Peripheral vascular disease, unspecified; N20.0 Calculus of kidney; N17.9 Acute kidney failure, unspecified; A41.9 Sepsis, unspecified organism; Z87.891 Personal history of nicotine dependence
CPT/HCPCS: 36415; 36600; 71045; 74176; 80051; 80053; 81001; 82330; 82550; 82805; 83605; 83690; 83735; 84484; 85007; 85025; 87040; 93005; 93926; 94640; 94660; 96365; 96366; 96367; 96375; 99291; J0610; J2405; J2543; J7030; J7611